=== PATIENT | female | born 1965 ===

== ENCOUNTER 2018-10-09 13:02 | Emergency (ER) | payer OTHER ==
[2018-10-09] MEDS ORDERED: Sodium Chloride 0.9% 1,000 ML IV STA (13:39)
--- NOTE | 2018-10-09 13:49 | C.PDOC ---
History Of Present Illness 53 y/o F c no PMHx p/w abdominal pain x 3 weeks. Pain is RLQ, constant, worse with movement or palpation. Associated with urinary incontinence. Also reports fever, cough, body aches, nausea x 5 days. Time Seen by Provider: 10/09/18 13:33 Chief Complaint (Nursing): Abdominal Pain Past Medical History Vital Signs: Last Vital Signs Temp 98.2 F 10/09/18 13:17 Pulse 77 10/09/18 13:17 Resp 18 10/09/18 13:17 BP 122/82 10/09/18 13:17 Pulse Ox 97 10/09/18 13:17 Family History: States: No Known Family Hx - Social History Hx Alcohol Use: No Hx Substance Use: No - Immunization History Hx Influenza Vaccination: Yes Hx Pneumococcal Vaccination: No Review Of Systems Except As Marked, All Systems Reviewed And Found Negative. Cardiovascular: Negative for: Chest Pain Respiratory: Negative for: Shortness of Breath Physical Exam - Physical Exam Additional Physical Exam Comments: gen nad head nc/at eyes perrl ent mmm neck supple chest no tenderness cv reg rate lungs cta b/l abd soft, RLQ tenderness with guarding back no cva tenderness extremities no edema skin no rash neuro alert no focal deficit ED Course And Treatment - Laboratory Results Result Diagrams: 10/09/18 14:03 10/09/18 14:03 O2 Sat by Pulse Oximetry: 97 Medical Decision Making Medical Decision Making: differential includes but not limited to appendicitis, colitis, UTI, influenza, pneumonia. CXR No active pulmonary disease EKG: Normal Sinus Rhythm at rate 66bpm. No ST/T wave changes. IMPRESSION: Hypoattenuation of the liver compatible with hepatic steatosis. Hysterectomy. Additional findings as above. Influenza positive, Tamiflu. Discharge home, f/u PMD, return to ED for worsening pain, fever, vomitng, or any other problem. Disposition - Disposition Referrals: [facility] [Outside] Disposition: HOME/ ROUTINE Disposition Time: 17:20 Condition: GOOD Prescriptions: Acetaminophen [Tylenol 325mg tab] 2 tab PO Q4H #30 tab Ibuprofen [Motrin] 600 mg PO Q6 #25 tab Ondansetron ODT [Zofran ODT] 4 mg PO Q8 #12 odt Oseltamivir Phosphate [Tamiflu] 1 cap PO BID #9 capsule Instructions: Flu, Adult (DC) Forms: [facility] (Kyrgyz), Gen Discharge Inst Ethiopian - Clinical Impression Clinical Impression: Influenza
--- NOTE | 2018-10-09 13:53 | RAD ---
Date of service: 10/09/2018 HISTORY: Cough COMPARISON: No prior. TECHNIQUE: Chest PA and lateral FINDINGS: LINES AND TUBES: None. LUNG AND PLEURA: The lungs are well inflated and clear. No pleural effusion or pneumothorax. HEART AND MEDIASTINUM: The heart is not enlarged. No aortic atherosclerotic calcifications present. The hilar and mediastinal contours are within normal limits. SKELETAL STRUCTURES: The bony structures are within normal limits for the patient's age. VISUALIZED UPPER ABDOMEN: Normal. OTHER FINDINGS: None. IMPRESSION: No active pulmonary disease.
[2018-10-09 14:13] LABS: BASO % 0.4 % (0.0-2.0); EOS # 0.1 K/uL (0.0-0.7); EOS % 1.6 % (0.0-4.0); HEMOGLOBIN 14.4 g/dL (11.0-16.0); LYMPH # 1.3 K/uL (1.0-4.3); LYMPH % 39.2 % (20.0-40.0); MEAN CELL VOLUME 89.5 fL (81.0-99.0); MEAN CORPUSCULAR HEMOGLOBIN 30.4 pg (27.0-31.0); MEAN PLATELET VOLUME 9.1 fL (7.2-11.7); MONO # 0.4 K/uL (0.0-0.8); MONO % 11.3 % (0.0-10.0); NEUT # 1.6 K/uL (1.8-7.0); NEUT % 47.5 % (50.0-75.0); RBC 4.72 Mil/uL (3.80-5.20); RED CELL DISTRIBUTION WIDTH 12.9 % (11.5-14.5)
[2018-10-09 14:15] LABS: WHITE BLOOD COUNT 3.4 K/uL (4.8-10.8)
[2018-10-09 14:19] LABS: HCG,QUALITATIVE URINE NEGATIVE (NEGATIVE)
[2018-10-09 14:24] LABS: ALB/GLOB RATIO 1.2 (1.0-2.1); ALBUMIN 4.3 g/dL (3.5-5.0); ALT/SGPT 41 U/L (9-52); AST/SGOT 45 U/L (14-36); BLOOD UREA NITROGEN 13 mg/dL (7-17); CALCIUM 9.2 mg/dl (8.6-10.4); GFR NON-AFRICAN AMERICAN > 60; LIPASE 167 U/L (23-300); SQUAMOUS EPITHIAL 1 /hpf (0-5); URINE BILIRUBIN NEGATIVE (NEGATIVE); URINE BLOOD NEGATIVE (NEGATIVE); URINE CLARITY Hazy (Clear); URINE COLOR Amber (YELLOW); URINE GLUCOSE (UA) NORMAL (Normal); URINE LEUKOCYTE ESTERASE NEG Leu/uL (Negative); URINE PROTEIN NEGATIVE (NEGATIVE)
[2018-10-09] MEDS ORDERED: Sodium Chloride 0.9% 1,000 ML ONE (14:51)
[2018-10-09] MEDS ORDERED: Iodixanol 320 MG/ML 100 ML BOTTLE IV ONE (15:17)
--- NOTE | 2018-10-09 17:10 | CT ---
Date of service: 10/09/2018 PROCEDURE: CT Abdomen and Pelvis with contrast HISTORY: LLQ pain COMPARISON: None available. TECHNIQUE: Contrast dose: 100 mL Visipaque 320 IV Radiation dose: Total exam DLP = 1076.02 mGy-cm. This CT exam was performed using one or more of the following dose reduction techniques: Automated exposure control, adjustment of the mA and/or kV according to patient size, and/or use of iterative reconstruction technique. FINDINGS: LOWER THORAX: No visible consolidation, pleural effusion, or pneumothorax. LIVER: Hypoattenuation of the liver compatible with hepatic steatosis. GALLBLADDER AND BILE DUCTS: Unremarkable. PANCREAS: Unremarkable. SPLEEN: Unremarkable. ADRENALS: Unremarkable. KIDNEYS AND URETERS: The kidneys enhance symmetrically. No hydronephrosis or obstructing calculus identified. VASCULATURE: No aortic aneurysm. No atherosclerotic calcification or mural plaque present. BOWEL: Stomach is nondistended. Lack of oral contrast limits evaluation for bowel pathology. Bowel loops appear within normal limits of caliber without evidence of obstruction. APPENDIX: The appendix appears within normal limits of caliber. No secondary signs of acute appendicitis. PERITONEUM: No significant free fluid. No definite free air. LYMPH NODES: No bulky adenopathy identified. BLADDER: Unremarkable. REPRODUCTIVE: The uterus is absent consistent with hysterectomy. BONES: Osseous demineralization. Degenerative changes of the spine. OTHER FINDINGS: Small fat containing umbilical hernia. IMPRESSION: Hypoattenuation of the liver compatible with hepatic steatosis. Hysterectomy. Additional findings as above.
[2018-10-09 17:21] VITALS: O2SAT 97
[2018-10-09 18:07] VITALS: BP 105/72; PULSE 73; RESP 19; TEMP 98.7
--- NOTE | 2018-10-10 12:40 | CARD ---
APPROVED REPORT Date of service: 10/09/2018 EKG Measurement Heart [id number] DC [id number] [id number] <Conclusion> Normal sinus rhythm Normal ECG
== END 2018-10-09 18:15 | disposition home or self-care (01) ==
LOC: C.ER 13:02
DX: J11.1 Influenza due to unidentified influenza virus with other respiratory manifestations (principal)
CPT/HCPCS: 71046; 74177; 80053; 81001; 83690; 84703; 85025; 87086; 87804; 93005; 96374; 96375; 99285; J1885; J2405; J7030; Q9967